=== PATIENT | male | born 1965 | race Caucasian/White ===

== ENCOUNTER 2025-03-17 00:23 | Day surgery (SDC) | payer OTHER, SELFPAY ==
[2025-03-09 09:14] VITALS: BMI 28.7
--- OUTSIDE RECORDS SUMMARY | 2025-03-17 00:26 | XMS_ITS | Continuity of Care Document ---
Author Organization [facility] Address [address] [place] [address] Phone Care Team Providers Care Dairy Laboratory Technician Name Role Phone Daryl Lundberg MD Unavailable Unavailable Allergies, Adverse Reactions, Alerts Substance Reaction Status Criticality No Known Allergies Active No Inform ation Medications Medication Instructions Dosage Effective Dates (start - stop) Status Comments No Drug Therapy Prescribed Procedures Procedure Date OFFICE/OUTPATIENT VISIT [facility] Advance Directives Directive Yes / No Effective Date File Name No Information Encounters Encounter Description Practice Location Reason(s) For Visit Diagnoses Date Provider Providers Copied on Encounter [facility], [address] [place] [address], [id number], [phone] [facility] No Information 6 Toño Brito. [address] [place] [address], [id number] . tel: [phone] OFFICE/OUTPA TIENT VISIT [facility], [address] [place] [address], [id number], tel:[phone] [facility] Primary osteoarthritis of right kneePrimary osteoarthritis of left knee 6 Ray Rebollar. [address] [place], [place] [address], [place], [id number] . tel: [phone] Family History Family Member Type Diagnosis Age At Onset Mother Problem (finding) Alive and well Father Problem (finding) Alive and well Brother Problem (finding) Alive and well Sister Problem (finding) Alive and well Payers Payer name Insurance type Covered alliance party ID Authoriza tion(s) No Information Social History Type Description Quantity Date Captured Comments Alcohol Use Details Unknown Caffeine Use Details Unknown Tobacco Use Status Smoking Status No Information Sex Male Chief Complaint And Reason For Visit No Information Reason For Referral Reason For Referral No Information Plan Of Treatment Date Type Action Status Referral Ordered: RADEX KNE COMPL 4/MORE VIEWS RT ordered Referral Ordered: RADEX KNE COMPL 4/MORE VIEWS LT ordered History Of Present Illness Encounter Date Complaint History Of Prese nt Illness No Information Functional Status Date Functional Assessmen t No Information Medications Administered Medication Instructions Dosage Effective Dates (start - stop) Status Comments No Drug Therapy Prescribed Instructions Date Instruction Additional Infor mation activity as tolerated Related to Primary osteoarthritis of left knee apply heating pad or ice as tolerated Related to Primary osteoarthritis of left knee Assessments Type Assessment Date No Information Patient Care Teams Name Effective Dates (start - stop) Status Members No Information
--- OUTSIDE RECORDS SUMMARY | 2025-03-17 00:26 | XMS_ITS | Clinical Summary ---
Author Organization [facility] Address [facility] [place] [address] Care Team Providers Care Gallery Or Museum Technician Name Role Phone Unavailable Primary Care Provider Unavailabl e Social History Tobacco Use Types Packs/Day Years Used Date Smoking Tobacco: Never Assessed Sex and Gender Information Value Date Recorded Sex Assigned at Not on file Legal Sex Male 4:49 PM CDT Gender Identity Not on file Sexual Orientation Not on file Plan of Treatment Health Maintenance Due Date Last Done Comments Colorectal Cancer Screening Colonoscopy (10 Years) 1964 Annual Physical 1967 Hepatitis C 1982 DTaP, Tdap and Td Vaccines ( 1 - Tdap) 1983 Zoster Vaccines (1 of 2) 2014 COVID-19 Vaccine ( - 2023-2 5 season) 2024 RSV Immunization or 60+ Years (1 - 1-dose 75+ series) 2039 Meningococcal B Vaccine Aged Out No l onger eligible based on patient's age to complete this topic Meningococcal Vaccine Aged Out No jam alan eligible based on patient's age to complete this topic Pneumococcal Vaccine: Pediat rics (0 to 5 Years) and At-Risk Patients (6 to 49 Years) Aged Out No longer eligible b ased on patient's age to complete this topic RSV Immunizations Under 20 Months Aged Out No longer eligible based on patient's age to complete this topic
--- OUTSIDE RECORDS SUMMARY | 2025-03-17 00:26 | XMS_ITS | Clinical Summary ---
Author Organization [facility] Address [address] [place] [id number] Phone Care Team Providers Care Clipper Machine Operator Name Role Phone Segundo Stratton MD Primary Care Provider [phone] Allergies No known active allergies Medications ALPRAZolam (XANAX) 0.25 mg tablet Take 0.25 mg by mouth nightly as needed for Anxiety. Active escitalopram oxalate (LEXAPRO) 10 mg tablet Take 10 mg by mouth daily. Active Social History Tobacco Use Types Packs/Day Years Used Date Smoking Tobacco: Never Smokeless Tobacco: Current Chew Alcohol Use Standard Drinks/Week Comments Yes 0 (1 standard drink = 0.6 oz pur e alcohol) depends on the day Feeling Safe Answer Date Recorded Within the last year, have y ou been afraid of your partner or ex-partner? No 07/18/2021 Within the last year, have y ou been humiliated or emotionally abused in other ways by your partner or ex-partner? No 07/18/2021 Within the last year, have y ou been kicked, hit, slapped, or otherwise physically hurt by your partner or ex-partner? No 07/18/2021 Sexually Abused Not on file 07/18/2021 Social Connections Answer Date Recorded In a typical week, how many times do you talk on the telephone with family, friends, or neighbors? Three times a week 07/18/20 How often do you get togethe r with friends or relatives? Twice a week 07/18/2021 How often do you attend chur ch or christian services? Never 07/18/2021 Do you belong to any clubs o r organizations such as yarsani groups, unions, fraternal or athletic groups, or school groups? No 07/18/2021 How often do you attend meet ings of the clubs or organizations you belong to? Never 07/18/2021 Are you , , di vorced, , never , or living with a partner? 07/18/2021 Financial Resource Strain Answer Date R ecorded How hard is it for you to pa y for the very basics like food, housing, medical care, and heating? Not hard at all 07/18/2021 Food Insecurity Answer Date Recorded In the past 12 months, have you worried that your food would run out before you had money to buy more? Never true 07/18/2021 In the past 12 months, did y ou run out of food and didn't have money to buy more? Never true 07/18/2021 Transportation Needs Answer Date Record ed In the past 12 months, has l ack of transportation kept you from medical appointments or from getting medications? No 07/01 In the past 12 months, has l ack of transportation kept you from meetings, work, or from getting things needed for daily living? No 07/18/2021 Housing Stability Answer Date Recorded In the last 12 months, was t here a time when you were not able to pay the mortgage or rent on time? No 07/18/2021 (RETIRED) In the last 12 months, how many places have you lived? 1 07/18/2021 (RETIRED) In the last 12 fri, was there a time when you did not have a steady place to sleep or slept in a chcf (including now)? No 07/18/2021 Sex and Gender Information Value Date Recorded Sex Assigned at Not on file Legal Sex Male 7:04 PM CDT Gender Identity Not on file Sexual Orientation Not on file Last Filed Vital Signs Vital Sign Reading Time Taken Comments Blood Pressure 150/96 07/18/2021 7:10 PM CDT Pulse 88 07/18/2021 7:10 PM CDT Temperature 36.9 C (98.4 F) 07/18/2021 7:10 PM CDT Respiratory Rate 28 07/18/2021 7:10 PM CDT Oxygen Saturation 100% 07/18/2021 7:10 PM CDT Inhaled Oxygen Concentration - - Weight 83.9 kg (185 lb) 07/18/2021 7:10 PM CDT Height 180.3 cm (5' 11 ) 07/18/2021 7:10 PM CDT Body Mass Index 25.8 07/18/2021 7:10 PM CDT Plan of Treatment Health Maintenance Due Date Last Done Comments DTAP/TDAP/TD VACCINES (1 - Tdap) 1983 COLORECTAL SCREENING 2009 Colorectal Cancer Screening 2009 FIT-DNA Q 3 years 2009 FIT/FOBT Q 1 year 2009 Flex Sig/CT Colonography Q 5 years 2009 ZOSTER VACCINE (1 of 2) 2014 INFLUENZA VACCINE (#1) 2024 RSV VACCINE (60+ or ) (1 - 1-dose 75+ series) 2039 HEPATITIS B VACCINES Aged Out No long er eligible based on patient's age to complete this topic PNEUMOCOCCAL VACCINE 0-49 YEARS Aged Out No longer eligible based on patient's age to complete this topic Insurance Care Teams Clipper Machine Operator Relationship Specialty Start Date End Date Segundo Stratton MD [address] [place] [address] PCP - General Internal Medicine 07/18/21
--- OUTSIDE RECORDS SUMMARY | 2025-03-17 00:26 | XMS_ITS | Continuity of Care Document ---
Author Organization [facility] Address [address] [place] [address] Phone Care Team Providers Care Radiation Monitor Name Role Phone Suman PACHECOT, Jenise BROWN Unavailable Unavail able Procedures Procedure Date Progress Note THERAPEUTIC EXERCISES NEUROMUSCULAR RE-ED FUNC ACTIVITY THERAPEUTIC EXERCISES NEUROMUSCULAR RE-ED FUNC ACTIVITY THERAPEUTIC EXERCISES NEUROMUSCULAR RE-ED FUNC ACTIVITY THERAPEUTIC EXERCISES NEUROMUSCULAR RE-ED FUNC ACTIVITY THERAPEUTIC EXERCISES NEUROMUSCULAR RE-ED MANUAL THERAPY FUNC ACTIVITY PT EVALUATION THERAPEUTIC EXERCISES MANUAL THERAPY Advance Directives Directive Yes / No Effective Date File Name No Information Encounters Encounter Description Practice Location Reason(s) For Visit Diagnoses Date Provider Providers Copied on Encounter [facility], [address], [place], [place], [id number], [place] tel:[phone] [place] No Information [address], [place], [address], [place]. [phone] Referring Provider: Zia King [address], [place], [address]. tel:[phone], [place], [place], [id number], tel:[phone] [facility] No Information 2 6 Suman Jenise. [address] [place] [address], [address], [place], [facility], . [phone] Referring Provider: Daryl Stanford, [address], [place], [place], [facility]. tel:[phone], [place], [place], [id number], tel:[phone] [facility] No Information 6 Suman Jenise. [address] [place] [address], [address], [place], [facility], . tel:[phone] Referring Provider: Daryl Stanford, [address], [place], [place], [facility]. tel:[phone] [address], [place], [place], [id number], tel:[phone] [facility] No Information 6 Suman Jenise. [address] [place] [address], [address], [place], [facility], . tel:[phone] Referring Provider: Daryl Stanford, [address], [place], [address]. tel:[phone] [facility] [address], [place], [place], [id number], tel:[phone] [facility] No Information 6 Suman Jenise. [address] [place] [address], [address], [place], [facility], . tel:[phone] Referring Provider: Daryl Stanford, [address], [place], [address]. tel:[phone] [facility] [address], [place], [place], [id number], [place] tel:[phone] [facility] Pain in right kneeStiffness of left knee, not elsewhere classifiedMuscle weakness (generalized)Bila teral primary osteoarthritis of knee [address], [place], [address], . tel: [phone] Referring Provider: Zia King [address], [place], [address]. tel:[phone] Family History Family Member Type Diagnosis Age At Onset No Information Payers Payer name Insurance type Covered green party ID Authorcarlie burton(s) [facility] [id number] Social History Type Description Quantity Date Captured Comments Sex Male Smoking Status No Information Chief Complaint And Reason For Visit No Information Reason For Referral Reason For Referral No Information History Of Present Illness Encounter Date Complaint History Of Prese nt Illness No Information Functional Status Date Functional Assessmen t No Information Instructions Date Instruction Additional Infor mation No Information Assessments Type Assessment Date No Information Patient Care Teams Name Effective Dates (start - stop) Status Members No Information
--- OUTSIDE RECORDS SUMMARY | 2025-03-17 00:26 | XMS_ITS | Clinical Summary ---
Author Organization [facility] Address [address] [place] [address] Phone Care Team Providers Care Creative Director Name Role Phone Provider, None Primary Care Provider Unavailabl e Medications hydrOXYzine (VISTARIL) 25 MG Capsule Take 1 Capsule by mouth 3 times daily as needed for Anxiety. 20 Capsule 07/23/2021 Active Social History Tobacco Use Types Packs/Day Years Used Date Smoking Tobacco: Never Assessed Sex and Gender Information Value Date Recorded Sex Assigned at Not on file Legal Sex Male 8:44 PM CDT Gender Identity Not on file Sexual Orientation Not on file Last Filed Vital Signs Vital Sign Reading Time Taken Comments Blood Pressure 158/81 07/23/2021 12:30 AM CDT Pulse 90 07/23/2021 12:30 AM CDT Temperature 36.9 C (98.4 F) 07/23/2021 12:30 AM CDT Respiratory Rate 17 07/23/2021 12:30 AM CDT Oxygen Saturation 94% 07/23/2021 12:30 AM CDT Inhaled Oxygen Concentration - - Weight 83.9 kg (185 lb) 07/22/2021 8:49 PM CDT Height 180.3 cm (5' 11 ) 07/22/2021 8:49 PM CDT Body Mass Index 25.8 07/22/2021 8:49 PM CDT Plan of Treatment Health Maintenance Due Date Last Done Comments Hepatitis C Virus (HCV) Screening 1965 TdaP Immunization 1964 Colonoscopy 2009 Colorectal Cancer Screening 2009 Cologuard 2014 Immunochemical Fecal Occult Blood 2014 Pneumococcal Immunization (5 0+ years) (1 of 1 - PCV) 2014 Zoster Immunization (1 of 2) 2014 Influenza Immunization (#1) 2024 SARS-COV-2 Immunization ( - 2023- season) 2024 Respiratory Syncytial Virus (RSV) Immunization (Adult) (1 - 1-dose 75+ series) 2039 Hepatitis B Immunization Aged Out No longer eligible based on patient's age to complete this topic Meningococcal Immunization (ACWY) Aged Out No longer eligible based on patient's age to complete this topic Rotavirus Immunization Aged Out No lo nger eligible based on patient's age to complete this topic Care Teams Creative Director Relationship Specialty Start Date End Date Provider, None [place] PCP - General 07/22/21
[2025-03-17 08:09] VITALS: BP 162/104; PULSE 81; RESP 18; TEMP 36.6; O2SAT 98; BMI 28.5
[2025-03-17] MEDS: LACTATED RINGERS 1,000 ML 150 ML IV CONT (08:21)
--- NOTE | 2025-03-17 08:41 | WPDANESEPPF ---
Anes - Initial Pre Proc Eval Procedure: Operation Date: 03/17/25 09:30 Proposed Procedures p Screening Colonoscopy - Gerald Burgos MD Date/Time: 03/17/25 08:41 Surgeon: Gerald Burgos MD Pre Op Diagnosis: malignant neoplasm of colon Patient Data Age: 59 Gender: M Height: 1.78 m Weight: 90.4 kg Last Vital Signs Temp 36.6 C 03/17/25 08:09 Pulse 81 03/17/25 08:09 Resp 18 03/17/25 08:09 BP 162/104 H 03/17/25 08:09 Pulse Ox 98 03/17/25 08:09 O2 Del Method Room Air 03/17/25 08:09 Allergies Allergy/AdvReac Type Severity Reaction Status Date / Time No Known Allergies Allergy Verified 03/17/25 08:08 Home Medications ?Medication ?Instructions ?Recorded ?Confirmed ?Type aspirin 81 mg tablet,delayed 81 mg PO DAILY 03/09/25 03/17/25 History release (Adult Aspirin Regimen) beet root 03/09/25 History magnesium 250 mg tablet 250 mg PO DAILY 03/09/25 03/17/25 History multivitamin (Daily Multi-Vitamin 1 tablet PO DAILY 03/09/25 03/17/25 History tablet) Patient hx anesthesia problems: none Family hx anesthesia problems: none Results Review: All pre-operative results and documents have been reviewed as part of the pre-operative evaluation. COUNTS INCLUDE 234 BEDS AT [facility] Past Medical History Medical History (Updated 03/17/25 @ 08:41 by Tae Beckett MD) Overweight Social History Social History Smoking packs per day: 0.5 Smoking cigarettes per day: 10.0 Years smoked: 20 Smoking pack-years: 10.00 Smoking status: Former smoker Alcohol intake: current Drinks per week: 12 Alcohol use details: beer/liquor Living arrangements: with family Spiritual care concerns: No Anes - Eval Final PreProcedure Day of Procedure 03/17/25 08:41 Patient weight: overweight Heart: regular rate and rhythm Lungs: clear to auscultation Airway: Mallampati scale class II Neurological: alert and oriented Last oral intake: >/= 8 hours ASA classification: II Emergent: no Anesthetic plan: proceed Anesthesia type and monitoring: general GIVS and standard monitoring Results Review: All pre-operative results and documents have been reviewed as part of the pre-operative evaluation. Informed Consent: The patient's anesthetic plan and its attendant risks and benefits were discussed with the patient/family/POA. Questions were solicited and answers provided to the satisfaction of the patient/family/POA.
--- NOTE | 2025-03-17 09:12 | PM.HPGS ---
History of Present Illness History of Present Illness Consent: Risks, benefits, and alternatives have been discussed and questions answered. Patient agrees to proceed with procedure. Chief complaint: malignant neoplasm of colon Narrative: Milad Whitehead is a 59 year old male here for first screening colonoscopy Review of Systems Review of Systems: All systems reviewed & are unremarkable except as noted in HPI and below PMFSH Past Medical History Medical History (Updated 03/17/25 @ 09:13 by Gerald Burgos MD) Colon cancer screening Overweight Social History Social History Smoking packs per day: 0.5 Smoking cigarettes per day: 10.0 Years smoked: 20 Smoking pack-years: 10.00 Smoking status: Former smoker Alcohol intake: current Drinks per week: 12 Alcohol use details: beer/liquor Living arrangements: with family Spiritual care concerns: No Meds Home Medications and Allergies Home Medications ?Medication ?Instructions ?Recorded ?Confirmed ?Type aspirin 81 mg tablet,delayed 81 mg PO DAILY 03/09/25 03/17/25 History release (Adult Aspirin Regimen) beet root 03/09/25 History magnesium 250 mg tablet 250 mg PO DAILY 03/09/25 03/17/25 History multivitamin (Daily Multi-Vitamin 1 tablet PO DAILY 03/09/25 03/17/25 History tablet) Allergies Allergy/AdvReac Type Severity Reaction Status Date / Time No Known Allergies Allergy Verified 03/17/25 08:08 Vital Signs Vital Signs - 24 hr 03/17/25 08:09 Temperature 98 F Pulse Rate 81 Respiratory Rate 18 Blood Pressure 162/104 H Pulse Oximetry 98 Oxygen Delivery Room Air Exam Const: General: comfortable and no acute distress HENMT: Face/Nose/Sinus: Normal nares present Eyes: General: appearance normal, both eyes and all related structures Neck: Neck: no JVD Resp: Auscultation: clear to auscultation bilaterally Cardio: Rate: regular rate Rhythm: regular rhythm GI: Inspection: non-distended GI Palp: Yes Soft to palpation Skin: General skin exam: normal color Neuro: General: gait normal Speech: normal speech Extrem: General: normal to inspection Psych: Mental Status: mental status grossly normal Assessment and Plan Assessment and plan (1) Colon cancer screening: Code(s): Z12.11 - Encounter for screening for malignant neoplasm of colon Status: Acute Assessment and Plan: colonoscopy
[2025-03-17 09:33] VITALS: BP 111/56; PULSE 85; RESP 18; O2SAT 98
[2025-03-17 09:43] VITALS: BP 125/79; PULSE 80; RESP 18; O2SAT 96
[2025-03-17 09:53] VITALS: BP 148/90; PULSE 66; RESP 15; O2SAT 100
== END 2025-03-17 10:03 | disposition home or self-care (01) ==
PROVIDERS: PCP Internal Medicine; Referring Provider Internal Medicine; Visit Provider Internal Medicine Gastroenterology
PROC: 0DJD8ZZ Inspection of Lower Intestinal Tract, Via Natural or Artificial Opening Endoscopic (ICD-10-PCS; CPT 45378; principal; 2025-03-17 09:30)
DX: Z12.11 Encounter for screening for malignant neoplasm of colon (principal); D12.0 Benign neoplasm of cecum; D12.4 Benign neoplasm of descending colon; D12.5 Benign neoplasm of sigmoid colon; K64.8 Other hemorrhoids; Z79.82 Long term (current) use of aspirin; Z87.891 Personal history of nicotine dependence
CPT/HCPCS: 45380; 45385; 88305; J2003; J2704; J7120